=== PATIENT | male | born 1960 ===

== ENCOUNTER → 2023-02-12 13:25 | Outpatient (REF) | payer BC, SELFPAY | LOC: PAVMRI 13:25 | PROVIDERS: ATTENDING PHYSICIAN Internal Medicine Critical Care Medicine; FAMILY PHYSICIAN Family Medicine | DX: H91.92 Unspecified hearing loss, left ear (principal) | CPT/HCPCS: 70553; A9575 ==

== ENCOUNTER 2024-04-12 06:24 | Day surgery (SDC) | payer BC, SELFPAY ==
[2024-04-12 07:55] LABS: Glucose - Point of Care 150 mg/dl (70-99)
== END 2024-04-12 09:53 | disposition home or self-care (01) ==
LOC: GI 06:24
PROVIDERS: ATTENDING PHYSICIAN Internal Medicine Gastroenterology
DX: Z12.11 Encounter for screening for malignant neoplasm of colon (principal); D12.5 Benign neoplasm of sigmoid colon; K64.8 Other hemorrhoids
CPT/HCPCS: 45385; 88305; 82962